=== PATIENT | male | born 1965 | race Caucasian/White ===

== ENCOUNTER 2017-01-16 15:25 | Inpatient (IN) | payer MEDICAID ==
[~2017-01-16] VITALS: Ht 175.3 cm; Wt 66.4 kg
[~2017-01-16 15:25] MED LIST: ESCI10TA PO; FERS325 PO; GABA-531 PO; PALI6 PO; PALI819S IM; THIA100 PO; VITA-328 PO
[2017-01-16 16:05] LABS: BASOPHILS % (AUTO) 1.5 % (0.0-2.0); HEMATOCRIT 45.9 % (41-53); HEMOGLOBIN 15.2 g/dL (13.5-17.5); LYMPHOCYTES # (AUTO) 2.5 K/uL (1.0-4.8); MEAN CORPUSCULAR HGB CONC 33.1 G/dL (31.0-37.0); MEAN CORPUSCULAR VOLUME 90 fL (80-100); MONOCYTES # (AUTO) 0.4 K/uL (0.1-1.0); MONOCYTES % (AUTO) 6.7 % (2.0-9.0); NEUTROPHILS # (AUTO) 3.4 K/uL (1.8-7.7); NEUTROPHILS % (AUTO) 52.8 % (40.0-70.0); PLATELET COUNT (AUTO) 356 K/uL (150-450); RED BLOOD CELL COUNT(AUTO) 5.08 MIL/uL (4.50-5.90); WHITE BLOOD COUNT (AUTO) 6.5 K/uL (4.5-11.0)
[2017-01-16 16:18] LABS: ANION GAP 8 mmol/L (8-16); CALCIUM, TOTAL 9.2 mg/dL (8.8-10.5); CARBON DIOXIDE 29 mmol/L (22-29); CHLORIDE 99 mmol/L (98-107); CREATININE 0.71 mg/dL (0.60-1.30); GLOMERULAR FILTR. RATE CALC > 60 mL/min (>60); POTASSIUM 4.8 mmol/L (3.5-5.1); SODIUM SERUM 136 mmol/L (136-145); UREA NITROGEN, BLOOD 5 mg/dL (7-18)
[2017-01-16 16:24] LABS: ALANINE AMINOTRANSFERASE 26 U/L (12-78); ASPARTATE AMINOTRANSFERASE 21 U/L (15-37); BILIRUBIN,TOTAL 0.5 mg/dL (0.1-1.0)
[2017-01-16] MEDS ORDERED: LORazepam 2 MG TABLET PO ONE (16:45)
[2017-01-16] MEDS ORDERED: HALOPERIDOL 5 MG TABLET PO ONE (16:45)
[2017-01-16] MEDS ORDERED: MAG HYDROX/AL HYDROX/SIMETH ES 30 ML SUSPENSION UDCUP PO PRN (17:45)
[2017-01-16] MEDS ORDERED: HALOPERIDOL 5 MG TABLET PO PRN (17:45)
[2017-01-16] MEDS ORDERED: ZOLPIDEM TARTRATE 10 MG TABLET PO PRN (17:45)
[2017-01-16] MEDS ORDERED: ACETAMINOPHEN 325 MG TABLET PO PRN (17:45)
[2017-01-16] MEDS ORDERED: MAGNESIUM HYDROXIDE SUSPENSION 30 ML UDCUP PO PRN (17:45)
[2017-01-16 22:00] VITALS: BP 126/74
[2017-01-16] MEDS ORDERED: CloNIDine HCL 0.1 MG TABLET PO PRN (22:45)
[2017-01-16 23:05] VITALS: BP 118/67
[2017-01-17] VITALS (10 sets, daily range): BP systolic 104–133; BP diastolic 62–87
[2017-01-17] MEDS: LORazepam 2 MG TABLET PO PRN (00:58)
[2017-01-17] MEDS ORDERED: PNEUMOCOCCAL VACCINE POLYVALENT 0.5 ML VIAL [PPSV23] IM ONE (01:15)
[2017-01-17] MEDS: ESCITALOPRAM OXALATE 20 MG TABLET PO SCH (08:55)
[2017-01-17] MEDS: PROPRANOLOL HCL 20 MG TABLET PO SCH ×2 (08:55→16:40)
[2017-01-17] MEDS: LORazepam 2 MG TABLET PO SCH ×4 (08:55→20:37)
[2017-01-17] MEDS: GABAPENTIN 300 MG CAPSULE PO SCH ×2 (08:55→16:40)
[2017-01-17] MEDS ORDERED: IBUPROFEN 400 MG TABLET PO PRN (23:00)
[2017-01-17] MEDS ORDERED: ACETAMINOPHEN 325 MG TABLET PO PRN (23:00)
[2017-01-17] MEDS ORDERED: ALBUTEROL SULFATE HFA 90 MCG/PUFF 8 GM INHALER IH PRN (23:00)
[2017-01-18 01:40] VITALS: BP 110/68
[2017-01-18 01:41] VITALS: BP 110/68
[2017-01-18 07:54] LABS: HEMOGLOBIN A1C 5.5 % (4.5-6.2)
[2017-01-18] MEDS: PROPRANOLOL HCL 20 MG TABLET PO SCH ×2 (08:03→16:11)
[2017-01-18] MEDS: ESCITALOPRAM OXALATE 20 MG TABLET PO SCH (08:03)
[2017-01-18] MEDS: GABAPENTIN 300 MG CAPSULE PO SCH ×2 (08:03→16:12)
[2017-01-18] MEDS: LORazepam 2 MG TABLET PO SCH ×3 (08:03→16:11)
[2017-01-18 08:26] LABS: CHOL/HDL RATIO 2.6 (4.2-7.3); THYROID STIMULATING HORMONE 1.71 uIU/mL (0.36-3.74)
[2017-01-18 09:00] VITALS: BP 144/96
[2017-01-18 09:10] VITALS: BP 144/96
[2017-01-18 13:55] VITALS: BP 124/94
[2017-01-18 16:00] VITALS: BP 134/86
[2017-01-18] MEDS: LORazepam 2 MG TABLET PO PRN (23:31)
[2017-01-19 00:08] VITALS: BP 105/57
[2017-01-19 00:58] VITALS: BP 105/57
[2017-01-19 08:00] VITALS: BP 131/93
[2017-01-19] MEDS: PROPRANOLOL HCL 20 MG TABLET PO SCH ×2 (08:28→16:39)
[2017-01-19] MEDS: LORazepam 2 MG TABLET PO SCH ×2 (08:28→16:39)
[2017-01-19] MEDS: ESCITALOPRAM OXALATE 20 MG TABLET PO SCH (08:28)
[2017-01-19] MEDS: GABAPENTIN 300 MG CAPSULE PO SCH ×2 (08:28→16:39)
[2017-01-19 08:39] VITALS: BP 131/93
[2017-01-19 16:00] VITALS: BP 116/82
[2017-01-19 16:09] VITALS: BP 116/82
[2017-01-19] MEDS: OLANZapine 5 MG TABLET PO SCH (20:52)
[2017-01-20 02:21] VITALS: BP 128/87
[2017-01-20] MEDS: LORazepam 2 MG TABLET PO PRN ×3 (02:21→20:41)
[2017-01-20 02:51] VITALS: BP 128/87
[2017-01-20] MEDS: ESCITALOPRAM OXALATE 20 MG TABLET PO SCH (08:28)
[2017-01-20] MEDS: PROPRANOLOL HCL 20 MG TABLET PO SCH ×2 (08:29→16:14)
[2017-01-20] MEDS: GABAPENTIN 300 MG CAPSULE PO SCH ×2 (08:29→16:14)
[2017-01-20 08:59] VITALS: BP 131/79
[2017-01-20] MEDS ORDERED: LORazepam 2 MG TABLET PO ONE (09:00)
[2017-01-20 16:00] VITALS: BP 123/73
[2017-01-20] MEDS ORDERED: GABA-531 PO (18:09)
[2017-01-20] MEDS ORDERED: PROP20 PO (18:09)
[2017-01-20] MEDS ORDERED: OLAN5TAB2 PO (18:09)
[2017-01-20] MEDS ORDERED: ESCI20TA PO (18:09)
[2017-01-20] MEDS: OLANZapine 5 MG TABLET PO SCH (21:00)
[2017-01-21 05:23] VITALS: BP 138/76
[2017-01-21] MEDS: LORazepam 2 MG TABLET PO PRN (05:26)
[2017-01-21 08:44] VITALS: BP 112/65
[2017-01-21] MEDS: PROPRANOLOL HCL 20 MG TABLET PO SCH (09:00)
[2017-01-21] MEDS: GABAPENTIN 300 MG CAPSULE PO SCH (09:00)
[2017-01-21] MEDS: ESCITALOPRAM OXALATE 20 MG TABLET PO SCH (09:00)
== END 2017-01-21 13:30 | disposition home or self-care (01) | DRG 750 ==
LOC: EMS 15:27 → B2S 17:54
PROVIDERS: ADMIT Psychiatry & Neurology Psychiatry; ATTEND Psychiatry & Neurology Psychiatry
DX: F25.0 Schizoaffective disorder, bipolar type (principal); R45.851 Suicidal ideations; J44.9 Chronic obstructive pulmonary disease, unspecified; F10.20 Alcohol dependence, uncomplicated; F19.10 Other psychoactive substance abuse, uncomplicated; F99 Mental disorder, not otherwise specified; I10 Essential (primary) hypertension; M19.90 Unspecified osteoarthritis, unspecified site; N40.0 Benign prostatic hyperplasia without lower urinary tract symptoms; Z91.5 Personal history of self-harm; Z88.8 Allergy status to other drugs, medicaments and biological substances; Z79.899 Other long term (current) drug therapy; Z63.8 Other specified problems related to primary support group; Z80.9 Family history of malignant neoplasm, unspecified; Z71.41 Alcohol abuse counseling and surveillance of alcoholic; Z71.51 Drug abuse counseling and surveillance of drug abuser; Z81.8 Family history of other mental and behavioral disorders; Z28.21 Immunization not carried out because of patient refusal
CPT/HCPCS: 83036; 84443; 90471; 99285; G0480

== ENCOUNTER 2017-02-25 10:53 | Inpatient (IN) | payer MEDICAID ==
[~2017-02-25] VITALS: Ht 170.2 cm; Wt 65.1 kg
[2017-02-25] VITALS (7 sets, daily range): BP systolic 107–135; BP diastolic 70–87
[~2017-02-25 10:53] MED LIST changes: +ESCI20TA PO; +FERR-89 PO; -FERS325 PO; +OLAN5TAB2 PO; -PALI6 PO; +PROP20 PO
[2017-02-25] MEDS ORDERED: CYANOCOBALAMIN 1,000 MCG/ML VIAL IM ONE (12:45)
[2017-02-25] MEDS ORDERED: HydrOXYzine PAMOATE 50 MG CAPSULE PO PRN (12:45)
[2017-02-25] MEDS ORDERED: ZOLPIDEM TARTRATE 10 MG TABLET PO PRN (12:45)
[2017-02-25] MEDS ORDERED: GuaiFENesin/D-METHORPHAN [SUGAR-FREE] 200-20MG/10 ML SYRUP UDCUP PO PRN (12:45)
[2017-02-25] MEDS ORDERED: LORazepam 2 MG TABLET PO PRN (12:45)
[2017-02-25] MEDS ORDERED: HALOPERIDOL 5 MG TABLET PO PRN (12:45)
[2017-02-25] MEDS ORDERED: LOPERAMIDE HCL 2 MG CAPSULE PO PRN (12:45)
[2017-02-25] MEDS ORDERED: BREX2TAB PO (13:30)
[2017-02-25] MEDS: LORazepam 2 MG TABLET PO SCH (14:30)
[2017-02-25] MEDS: LORazepam 2 MG TABLET PO PRN ×2 (14:30→16:40)
[2017-02-25] MEDS ORDERED: PNEUMOCOCCAL VACCINE POLYVALENT 0.5 ML VIAL [PPSV23] IM ONE (14:45)
[2017-02-25] MEDS: BACITRACIN 28.4 GM OINTMENT TP SCH (16:32)
[2017-02-25] MEDS: THIAMINE HCL 100 MG TABLET PO SCH (16:32)
[2017-02-25] MEDS: GABAPENTIN 300 MG CAPSULE PO SCH (16:32)
[2017-02-25] MEDS ORDERED: OLANZapine 5 MG TABLET PO SCH (21:00)
[2017-02-26] VITALS (7 sets, daily range): BP systolic 122–144; BP diastolic 68–96
[2017-02-26] MEDS: LORazepam 2 MG TABLET PO PRN (02:21)
[2017-02-26] MEDS ORDERED: LORazepam 2 MG TABLET PO PRN (07:00)
[2017-02-26 08:00] LABS: BASOPHILS # (AUTO) 0.02 K/uL (0.00-0.20); BASOPHILS % (AUTO) 0.3 % (0.0-2.0); EOSINOPHILS # (AUTO) 0.08 K/uL (0.00-0.70); EOSINOPHILS % (AUTO) 1.42 % (1.0-6.0); HEMATOCRIT 41.1 % (41-53); HEMOGLOBIN 13.6 g/dL (13.5-17.5); LYMPHOCYTES # (AUTO) 1.2 K/uL (1.0-4.8); LYMPHOCYTES % (AUTO) 20.8 % (22.0-44.0); MEAN CORPUSCULAR HEMOGLOBIN 30.3 pg (26.0-34.0); MEAN CORPUSCULAR HGB CONC 33.2 G/dL (31.0-37.0); MEAN CORPUSCULAR VOLUME 91 fL (80-100); MONOCYTES # (AUTO) 0.3 K/uL (0.1-1.0); MONOCYTES % (AUTO) 4.6 % (2.0-9.0); NEUTROPHILS # (AUTO) 4.2 K/uL (1.8-7.7); NEUTROPHILS % (AUTO) 72.9 % (40.0-70.0); PLATELET COUNT (AUTO) 151 K/uL (150-450); WHITE BLOOD COUNT (AUTO) 5.8 K/uL (4.5-11.0)
[2017-02-26 08:22] LABS: ALANINE AMINOTRANSFERASE 33 U/L (12-78); ALBUMIN 3.9 g/dL (3.4-5.0); ANION GAP 9 mmol/L (8-16); ASPARTATE AMINOTRANSFERASE 28 U/L (15-37); BILIRUBIN,TOTAL 0.8 mg/dL (0.1-1.0); CARBON DIOXIDE 27 mmol/L (22-29); CHLORIDE 102 mmol/L (98-107); CREATININE 0.74 mg/dL (0.60-1.30); GLOMERULAR FILTR. RATE CALC > 60 mL/min (>60); POTASSIUM 3.8 mmol/L (3.5-5.1); SODIUM SERUM 138 mmol/L (136-145); UREA NITROGEN, BLOOD 9 mg/dL (7-18)
[2017-02-26] MEDS: LORazepam 2 MG TABLET PO SCH ×4 (08:29→20:57)
[2017-02-26] MEDS: FOLIC ACID 1 MG TABLET PO SCH (08:29)
[2017-02-26] MEDS: MULTIVITAMINS WITH MINERALS, THERAPEUTIC TABLET PO SCH (08:29)
[2017-02-26] MEDS: ESCITALOPRAM OXALATE 20 MG TABLET PO SCH (08:29)
[2017-02-26] MEDS: THIAMINE HCL 100 MG TABLET PO SCH ×2 (08:29→16:25)
[2017-02-26] MEDS: GABAPENTIN 300 MG CAPSULE PO SCH ×2 (08:29→16:25)
[2017-02-26] MEDS: BACITRACIN 28.4 GM OINTMENT TP SCH ×2 (08:30→16:26)
[2017-02-26] MEDS ORDERED: ALBUTEROL SULFATE HFA 90 MCG/PUFF 8 GM INHALER IH PRN (20:15)
[2017-02-26] MEDS ORDERED: IBUPROFEN 400 MG TABLET PO PRN (20:15)
[2017-02-26] MEDS ORDERED: ACETAMINOPHEN 325 MG TABLET PO PRN (20:15)
[2017-02-27 02:17] VITALS: BP 138/80
[2017-02-27 02:19] VITALS: BP 138/80
[2017-02-27 08:02] VITALS: BP 125/81
[2017-02-27] MEDS: PROPRANOLOL HCL 20 MG TABLET PO SCH ×2 (08:08→16:07)
[2017-02-27] MEDS: MULTIVITAMINS WITH MINERALS, THERAPEUTIC TABLET PO SCH (08:08)
[2017-02-27] MEDS: FOLIC ACID 1 MG TABLET PO SCH (08:08)
[2017-02-27] MEDS: LORazepam 2 MG TABLET PO SCH ×4 (08:08→20:24)
[2017-02-27] MEDS: GABAPENTIN 300 MG CAPSULE PO SCH ×2 (08:08→16:07)
[2017-02-27] MEDS: THIAMINE HCL 100 MG TABLET PO SCH ×2 (08:08→16:07)
[2017-02-27] MEDS: ESCITALOPRAM OXALATE 20 MG TABLET PO SCH (08:09)
[2017-02-27] MEDS: BACITRACIN 28.4 GM OINTMENT TP SCH ×2 (08:09→16:07)
[2017-02-27 08:10] VITALS: BP 125/81
[2017-02-27 08:27] LABS: HEMOGLOBIN A1C 5.6 % (4.5-6.2)
[2017-02-27 08:59] LABS: CHOL/HDL RATIO 1.7 (4.2-7.3); THYROID STIMULATING HORMONE 1.48 uIU/mL (0.36-3.74)
[2017-02-27 16:00] VITALS: BP 131/78
[2017-02-27 16:04] VITALS: BP 131/78
[2017-02-27] MEDS: OLANZapine 10 MG TABLET PO SCH (20:24)
[2017-02-28 02:16] VITALS: BP 111/75
[2017-02-28 02:18] VITALS: BP 111/75
[2017-02-28] MEDS ORDERED: LORazepam 1 MG TABLET PO PRN (07:00)
[2017-02-28 09:10] VITALS: BP 125/93
[2017-02-28] MEDS: MULTIVITAMINS WITH MINERALS, THERAPEUTIC TABLET PO SCH (09:16)
[2017-02-28] MEDS: FOLIC ACID 1 MG TABLET PO SCH (09:16)
[2017-02-28] MEDS: THIAMINE HCL 100 MG TABLET PO SCH ×2 (09:16→17:29)
[2017-02-28] MEDS: PROPRANOLOL HCL 20 MG TABLET PO SCH ×2 (09:16→17:35)
[2017-02-28] MEDS: GABAPENTIN 300 MG CAPSULE PO SCH ×2 (09:16→17:29)
[2017-02-28] MEDS: ESCITALOPRAM OXALATE 20 MG TABLET PO SCH (09:17)
[2017-02-28] MEDS: BACITRACIN 28.4 GM OINTMENT TP SCH ×2 (09:17→17:29)
[2017-02-28] MEDS: LORazepam 1 MG TABLET PO SCH ×3 (09:17→17:29)
[2017-02-28] MEDS ORDERED: LORazepam 1 MG TABLET PO SCH (16:45)
[2017-02-28 17:33] VITALS: BP 108/64
[2017-02-28 17:34] VITALS: BP 135/84
[2017-02-28] MEDS: OLANZapine 10 MG TABLET PO SCH (20:18)
[2017-03-01 01:00] VITALS: BP 115/67
[2017-03-01] MEDS ORDERED: LORazepam 1 MG TABLET PO PRN (07:00)
[2017-03-01 08:23] VITALS: BP 113/62
[2017-03-01] MEDS: ESCITALOPRAM OXALATE 20 MG TABLET PO SCH (08:26)
[2017-03-01] MEDS: FOLIC ACID 1 MG TABLET PO SCH (08:26)
[2017-03-01] MEDS: GABAPENTIN 300 MG CAPSULE PO SCH ×2 (08:26→16:45)
[2017-03-01] MEDS: PROPRANOLOL HCL 20 MG TABLET PO SCH ×2 (08:26→16:45)
[2017-03-01] MEDS: LORazepam 1 MG TABLET PO SCH ×2 (08:26→16:46)
[2017-03-01] MEDS: MULTIVITAMINS WITH MINERALS, THERAPEUTIC TABLET PO SCH (08:26)
[2017-03-01] MEDS: THIAMINE HCL 100 MG TABLET PO SCH ×2 (08:26→16:46)
[2017-03-01 08:30] VITALS: BP 113/62
[2017-03-01] MEDS: BACITRACIN 28.4 GM OINTMENT TP SCH ×2 (09:00→16:46)
[2017-03-01 16:00] VITALS: BP 133/78
[2017-03-01] MEDS ORDERED: LORazepam 1 MG TABLET PO SCH (17:00)
[2017-03-01] MEDS: OLANZapine 10 MG TABLET PO SCH (21:14)
[2017-03-02 03:30] VITALS: BP 124/70
[2017-03-02 05:24] VITALS: BP 124/70
[2017-03-02 09:22] VITALS: BP 123/75
[2017-03-02] MEDS: GABAPENTIN 300 MG CAPSULE PO SCH (09:40)
[2017-03-02] MEDS: THIAMINE HCL 100 MG TABLET PO SCH (09:40)
[2017-03-02] MEDS: BACITRACIN 28.4 GM OINTMENT TP SCH (09:40)
[2017-03-02] MEDS: PROPRANOLOL HCL 20 MG TABLET PO SCH (09:40)
[2017-03-02] MEDS: MULTIVITAMINS WITH MINERALS, THERAPEUTIC TABLET PO SCH (09:40)
[2017-03-02] MEDS: ESCITALOPRAM OXALATE 20 MG TABLET PO SCH (09:40)
[2017-03-02] MEDS: FOLIC ACID 1 MG TABLET PO SCH (09:40)
== END 2017-03-02 13:15 | disposition home or self-care (01) | DRG 750 ==
LOC: B2S 12:47
PROVIDERS: ADMIT Psychiatry & Neurology Psychiatry; ATTEND Psychiatry & Neurology Psychiatry
DX: F25.0 Schizoaffective disorder, bipolar type (principal); R45.851 Suicidal ideations; J44.9 Chronic obstructive pulmonary disease, unspecified; I10 Essential (primary) hypertension; F10.20 Alcohol dependence, uncomplicated; N40.0 Benign prostatic hyperplasia without lower urinary tract symptoms; M19.90 Unspecified osteoarthritis, unspecified site; F19.10 Other psychoactive substance abuse, uncomplicated
CPT/HCPCS: 83036; 84443; J3420